=== PATIENT | male | born 1980 | race Caucasian/White ===

== ENCOUNTER 2019-01-21 15:43 | Emergency (ER) | payer MEDICAID ==
[~2019-01-21] VITALS: Ht 182.9 cm; Wt 95.5 kg
[~2019-01-21 15:43] MED LIST: CYCL-1 PO; METH-603 PO
[2019-01-21 15:59] VITALS: BP 181/82
[2019-01-21] MEDS ORDERED: IBUP-1985 PO (16:35)
== END 2019-01-21 16:54 | disposition home or self-care (01) ==
LOC: ER 15:44
DX: S93.492A Sprain of other ligament of left ankle, initial encounter (principal); S90.02XA Contusion of left ankle, initial encounter; G89.29 Other chronic pain; X50.1XXA Overexertion from prolonged static or awkward postures, initial encounter; Y93.01 Activity, walking, marching and hiking; Y92.89 Other specified places as the place of occurrence of the external cause; Y99.9 Unspecified external cause status
CPT/HCPCS: 29540; 73610; 73630; 99283

== ENCOUNTER 2019-08-24 09:33 | Inpatient (IN) | payer MEDICAID ==
[~2019-08-24] VITALS: Ht 188 cm; Wt 105.0 kg
[~2019-08-24 09:33] MED LIST changes: +IBUP-1985 PO
[2019-08-24 10:07] LABS: BASOPHILS % (AUTO) 0.8 % (0-1); EOSINOPHILS % (AUTO) 0.1 % (0-6); HEMATOCRIT 44.6 % (42.0-52.0); HEMOGLOBIN 15.4 g/dl (14.0-17.9); LYMPHOCYTES # (AUTO) 1.6 X10'3 (1.1-4.8); LYMPHOCYTES % (AUTO) 30.3 % (21-51); MEAN CORPUSCULAR HEMOGLOBIN 34.5 PG (27.0-31.0); MEAN CORPUSCULAR HGB CONC 34.5 g/dL (33.0-36.5); MEAN CORPUSCULAR VOLUME 99.9 FL (78-98); MEAN PLATELET VOLUME 7.5 FL (7.4-10.4); MONOCYTES # (AUTO) 0.4 X10'3 (0-0.9); MONOCYTES % (AUTO) 7.7 % (2-12); NEUTROPHILS # (AUTO) 3.3 X10'3 (1.8-7.7); NEUTROPHILS % (AUTO) 61.1 % (42-75); PLATELET COUNT 127 X10'3 (140-440); RED BLOOD COUNT 4.46 X10'6 (4.70-6.10); RED CELL DISTRIBUTION WIDTH 16.3 % (11.5-14.5); WHITE BLOOD COUNT 5.3 X10'3 (4.5-11.0)
[2019-08-24 10:32] LABS: ALANINE AMINOTRANSFERASE 174 U/L (12-78); ALBUMIN 2.6 G/DL (3.4-5.0); ALBUMIN/GLOBULIN RATIO 0.4 (1.1-1.5); ALKALINE PHOSPHATASE 260 IU/L (46-116); ANION GAP 12 (8-16); ASPARTATE AMINO TRANSFERASE 589 U/L (10-37); BLOOD UREA NITROGEN 9 MG/DL (7-18); BUN/CREATININE RATIO 8.6 (5.4-32.0); CALCIUM 8.6 MG/DL (8.5-10.1); CHLORIDE 99 MMOL/L (99-107); CREATININE 1.05 MG/DL (0.60-1.10); GLUCOSE 174 MG/DL (70-104); SODIUM 140 MMOL/L (135-145); TOTAL CARBON DIOXIDE 28.7 MMOL/L (24-32); TOTAL PROTEIN 8.6 G/DL (6.4-8.2); eGFR 79 ML/MIN
[2019-08-24 10:40] LABS: LIPASE 1860 U/L (73-393)
[2019-08-24 10:42] LABS: POTASSIUM 2.7 MMOL/L (3.5-5.1)
[2019-08-24] MEDS ORDERED: normal saline 1000ML IV soln IVB ONE ×2 (10:45→11:30)
--- NOTE | 2019-08-24 10:55 | NUR ---
TESSIE Malhotra made aware patient actively vomiting, diaphoretic, shaking, patient states he feels symptoms are related to ETOH withdrawl.
[2019-08-24] MEDS ORDERED: proCHLORperazine 10 MG/2 ml inj IV ONE (11:00)
[2019-08-24] MEDS ORDERED: LORazepam 2 mg/ml vial IV ONE (11:00)
[2019-08-24] MEDS ORDERED: diphenhydrAMINE 50 mg/ml inj IV ONE (11:00)
[2019-08-24] MEDS ORDERED: potassium chloride 10mEq ER tablet PO ONE (11:10)
[2019-08-24 11:29] LABS: TRIGLYCERIDES 266 MG/DL (20-135)
[2019-08-24] MEDS ORDERED: thiamine 100mg/ml 2ml inj. IV ONE ×2 (11:30→12:10)
[2019-08-24] MEDS ORDERED: folic acid 1mg/0.2ml inj IV ONE (11:30)
[2019-08-24] MEDS ORDERED: morphine 2 MG/ML inj. syringe IV ONE (12:00)
[2019-08-24] MEDS ORDERED: morphine 2 MG/ML inj. syringe IV PRN ×2 (12:10)
[2019-08-24] MEDS ORDERED: dextrose 50%-water 50ml dispensing syringe IV PRN (12:10)
[2019-08-24] MEDS ORDERED: cloNIDine 0.1 MG/24 HOUR patch (7 day patch) TD SCH (12:10)
[2019-08-24] MEDS ORDERED: haloperidol lactate 5mg/ml inj IM PRN (12:10)
[2019-08-24] MEDS ORDERED: HYDROcodone/acetaminophen 5mg/325mg tablet PO PRN (12:10)
[2019-08-24] MEDS ORDERED: acetaminophen 325mg tablet PO PRN ×2 (12:10)
[2019-08-24] MEDS ORDERED: loperamide 2mg capsule PO PRN ×2 (12:10)
[2019-08-24] MEDS ORDERED: magnesium hydroxide 30ml (MOM) UD suspension PO PRN (12:10)
[2019-08-24] MEDS ORDERED: mag hydrox/Alum hydrox/simeth 30ml oral suspension PO PRN ×2 (12:10)
[2019-08-24] MEDS ORDERED: cyclobenzaprine 10mg tablet PO PRN (12:10)
[2019-08-24] MEDS: nitroGLYCERIN 0.4mg SUBLingual tab SL PRN ×2 (12:24→12:31)
[2019-08-24] MEDS ORDERED: NO HOME MEDS (12:39)
--- NOTE | 2019-08-24 13:13 | NUR ---
Tried to call report to PCU. Told that the nurse was finishing up a discharge and that she would call right back.
--- NOTE | 2019-08-24 13:33 | NUR ---
Patient in room ED 13. I have received report from Lisa CALDERON and had the opportunity to ask questions. Awaiting patient arrival to the unit.
--- NOTE | 2019-08-24 14:01 | NUR ---
patient arrived on unit, vss
[2019-08-24] MEDS: methadone 10mg tablet PO SCH ×3 (14:02→20:05)
[2019-08-24] MEDS: dextrose 5%-1/2 normal saline 1,000 ML IV SCH (14:03)
[2019-08-24 14:05] VITALS: BP 155/93
[2019-08-24] MEDS: LORazepam 2 mg/ml vial IV PRN ×4 (14:10→22:22)
[2019-08-24] MEDS: ondansetron/PF 4mg/2ml inj IV PRN ×2 (14:10→22:41)
--- NOTE | 2019-08-24 15:00 | NUR ---
Problems reprioritized. Patient report given, questions answered & plan of care reviewed with Garry BANGURA.
--- NOTE | 2019-08-24 15:00 | NUR ---
Patient in room PCU 3012. I have received report from Lin BANGURA and had the opportunity to ask questions and assume patient care.
--- NOTE | 2019-08-24 15:09 | NUR ---
Paged Dr. Hoyos. Jarrod Carlton. [id number]. Patient has a potassium of 2.7. One time dose of 40 meq was given in the ED. No replacement orders. Please advise. TY. Castañeda [id number]
[2019-08-24] MEDS: HYDROcodone/acetaminophen 10/325mg tab PO PRN (16:10)
[2019-08-24] MEDS ORDERED: pneumococcal 23-VAL P-sac vacc 25 mcg/0.5ml vial IMVAC ONE (16:45)
[2019-08-24] MEDS ORDERED: SILD100T PO (16:48)
[2019-08-24 18:00] VITALS: BP 136/75
--- NOTE | 2019-08-24 18:31 | NUR ---
Problems reprioritized. Patient report given, questions answered & plan of care reviewed with Mohit BANGURA.
--- NOTE | 2019-08-24 18:33 | NUR ---
Patient in room PCU 3012. I have received report from Garry BANGURA and had the opportunity to ask questions and assume patient care.
--- NOTE | 2019-08-24 19:29 | NUR ---
PAGE SENT PAGER ID: [phone] MESSAGE: pt in [id number] Jarrod Carlton 39 male here for crp and ETOH, pt potassium at 0948 this morning was 2.[address] him on K/Mg protocol?-Mohit
[2019-08-24] MEDS ORDERED: potassium CL 10mEq/100ml bag 100 ML IV PRN (19:55)
[2019-08-24] MEDS ORDERED: magnesium 4gm in 100ml NS 100 ML IV PRN (19:55)
[2019-08-24] MEDS ORDERED: magnesium Cl slow-release 64mg tablet PO PRN (19:55)
[2019-08-24] MEDS ORDERED: potassium Cl 20 mEq SR tablet PO PRN (19:55)
[2019-08-24] MEDS: K and/or MAG REPLACEMENT MC SCH ×2 (20:00→20:04)
[2019-08-24] MEDS: potassium Cl 20 mEq SR tablet PO PRN (20:05)
[2019-08-24 20:38] LABS: MAGNESIUM 1.4 MG/DL (1.5-2.4)
[2019-08-24 20:43] LABS: POTASSIUM 2.7 MMOL/L (3.5-5.1)
--- NOTE | 2019-08-24 20:47 | NUR ---
Page Sent PAGER ID: [phone] MESSAGE: pt in [id number] Jarrod Carlton 39 male here for crp and ETOH, pt potassium 2.7 pt on K/Mg protocol and receiving replacement.-Mohit [id number]
[2019-08-24 22:00] VITALS: BP 143/73
--- NOTE | 2019-08-24 22:10 | NUR ---
pt reports feeling anxious, and hallucinations. pt is tremulous, HR elevated, restless, and sweating. pt A&O x3.
--- NOTE | 2019-08-24 23:20 | NUR ---
pt found by staff walking in room bleeding from IV site, pt states he fell and hit the back of his head on the wall, pt states he urinated on floor and slipped in it, as he could not find the restroom. pt a&o x 3, and appropriate, reports pain to the back of his head no injury visualized to the pt, Dr. Dumont notified, advised to monitor pt, no new orders. Addendum: 08/25/19 at 0043 by Bob Caruso RN pt was re-educated about call light, bed alarm on Addendum: 08/25/19 at 0044 by Bob Caruso RN pt moved closer to nurses station.
--- NOTE | 2019-08-24 23:39 | NUR ---
Page Sent PAGER ID: [phone] MESSAGE: pt in [id number] Jarrod Carlton 39 male here for cp and ETOH, pt reports falling and hitting his head.- Mohit [id number]
[2019-08-25] MEDS: dextrose 5%-1/2 normal saline 1,000 ML IV SCH ×2 (00:36→08:08)
[2019-08-25] MEDS: LORazepam 2 mg/ml vial IV PRN ×4 (00:36→07:19)
[2019-08-25] MEDS: potassium Cl 20 mEq SR tablet PO PRN ×2 (01:36→07:18)
[2019-08-25 01:59] VITALS: BP 161/91
--- NOTE | 2019-08-25 04:00 | NUR ---
pt agitated, anxious, tremulous, pt also hallucinating, pt states he wants to leave pt educated and diverted from leaving.
[2019-08-25] MEDS: HYDROcodone/acetaminophen 10/325mg tab PO PRN ×2 (04:08→08:12)
[2019-08-25 06:00] VITALS: BP 170/93
[2019-08-25 06:08] LABS: ALANINE AMINOTRANSFERASE 164 U/L (12-78); ALBUMIN 2.5 G/DL (3.4-5.0); ALBUMIN/GLOBULIN RATIO 0.5 (1.1-1.5); ALKALINE PHOSPHATASE 217 IU/L (46-116); ANION GAP 10 (8-16); ASPARTATE AMINO TRANSFERASE 535 U/L (10-37); BILIRUBIN,TOTAL 2.8 MG/DL (0.1-1.0); BLOOD UREA NITROGEN 9 MG/DL (7-18); BUN/CREATININE RATIO 8.8 (5.4-32.0); CALCIUM 8.2 MG/DL (8.5-10.1); CHLORIDE 100 MMOL/L (99-107); CHOL/HDL RATIO 9.4 (0.00-4.99); CHOLESTEROL 234 MG/DL (0-200); CREATININE 1.02 MG/DL (0.60-1.10); GLUCOSE 117 MG/DL (70-104); HDL CHOLESTEROL 25 MG/DL (35-60); LDL CHOLESTEROL 159 MG/DL (50-100); MAGNESIUM 1.2 MG/DL (1.5-2.4); SODIUM 140 MMOL/L (135-145); TOTAL PROTEIN 7.7 G/DL (6.4-8.2); TRIGLYCERIDES 173 MG/DL (20-135); eGFR 82 ML/MIN
[2019-08-25 06:16] LABS: LIPASE 1663 U/L (73-393)
--- NOTE | 2019-08-25 06:20 | NUR ---
Problems reprioritized. Patient report given, questions answered & plan of care reviewed with Jessi BANGURA.
[2019-08-25 06:23] LABS: POTASSIUM 2.8 MMOL/L (3.5-5.1)
--- NOTE | 2019-08-25 06:35 | NUR ---
Patient in room PCU 3017. I have received report from Mohit BANGURA and had the opportunity to ask questions and assume patient care.
--- NOTE | 2019-08-25 06:36 | NUR ---
Patient in room PCU 3017. I have received report from [facility] and had the opportunity to ask questions and assume patient care.
[2019-08-25 07:04] LABS: BASOPHILS % (AUTO) 0.8 % (0-1); EOSINOPHILS % (AUTO) 0.3 % (0-6); HEMATOCRIT 38.9 % (42.0-52.0); HEMOGLOBIN 13.1 g/dl (14.0-17.9); LYMPHOCYTES # (AUTO) 0.6 X10'3 (1.1-4.8); LYMPHOCYTES % (AUTO) 13.2 % (21-51); MEAN CORPUSCULAR HGB CONC 33.6 g/dL (33.0-36.5); MEAN CORPUSCULAR VOLUME 101.1 FL (78-98); MONOCYTES # (AUTO) 0.4 X10'3 (0-0.9); MONOCYTES % (AUTO) 8.5 % (2-12); NEUTROPHILS # (AUTO) 3.6 X10'3 (1.8-7.7); NEUTROPHILS % (AUTO) 77.2 % (42-75); PLATELET COUNT 74 X10'3 (140-440); RED BLOOD COUNT 3.85 X10'6 (4.70-6.10); WHITE BLOOD COUNT 4.6 X10'3 (4.5-11.0)
[2019-08-25] MEDS: methadone 10mg tablet PO SCH (07:18)
[2019-08-25] MEDS: K and/or MAG REPLACEMENT MC SCH (07:22)
[2019-08-25] MEDS ORDERED: metoprolol tartrate 1mg/ml inj IV PRN (07:35)
[2019-08-25] MEDS ORDERED: regadenoson 0.4mg/5ml syringe IV ONE (07:35)
[2019-08-25] MEDS ORDERED: nitroGLYCERIN 0.4mg SUBLingual tab SL PRN (07:35)
[2019-08-25] MEDS ORDERED: aminophylline 250mg/10ml inj. IV PRN (07:35)
[2019-08-25] MEDS ORDERED: aspirin 81mg tablet.DR PO SCH (08:00)
[2019-08-25 08:41] LABS: PLATELET ESTIMATE DECREASED
--- NOTE | 2019-08-25 08:50 | NUR ---
Spoke to Dr. Hoyos in regards to patient wanting to leave AMA, pt uncooperative and does not want to stay for stress test, Dr. Hoyos ok for patient to leave AMA, AMA paper signed, tele monitor returned and PIV dc'ed and clean dry dressing in place, pt is wheeled down to [facility] w/ hospital staff and student RN to private vehicle, all belongings w/ pt.
[2019-08-25 08:55] VITALS: BP 167/93
[2019-08-25] MEDS ORDERED: pneumococcal 23-VAL P-sac vacc 25 mcg/0.5ml vial IMVAC ONE (10:00)
== END 2019-08-25 09:10 | disposition left against medical advice (07) | DRG 282 ==
LOC: ER 09:33 → ED HOLD 12:08 → EDBEDREQ 13:08 → PCU 3S 14:25
PROVIDERS: ADMIT Internal Medicine; ATTEND Internal Medicine
DX: K85.20 Alcohol induced acute pancreatitis without necrosis or infection (principal); I50.9 Heart failure, unspecified; K70.10 Alcoholic hepatitis without ascites; E87.6 Hypokalemia; F17.210 Nicotine dependence, cigarettes, uncomplicated; K86.0 Alcohol-induced chronic pancreatitis; F10.239 Alcohol dependence with withdrawal, unspecified; Z53.29 Procedure and treatment not carried out because of patient's decision for other reasons; G89.29 Other chronic pain; M54.9 Dorsalgia, unspecified; I25.10 Atherosclerotic heart disease of native coronary artery without angina pectoris; I25.2 Old myocardial infarction; Z82.49 Family history of ischemic heart disease and other diseases of the circulatory system
CPT/HCPCS: 36415; 71045; 76700; 80053; 80061; 82948; 83690; 83735; 83880; 84132; 84478; 84484; 85025; 85610; 87081; 93005; 96361; 96374; 96375; 99285; G0378; J0780; J1200; J1630; J2060; J2270; J2405; J3411; J3490; J7030

== ENCOUNTER 2019-08-25 13:38 | Emergency (ER) | payer MEDICAID ==
[~2019-08-25 13:38] MED LIST changes: -CYCL-1 PO; -IBUP-1985 PO; -METH-603 PO; +NO HOME MEDS; +SILD100T PO
--- NOTE | 2019-08-25 14:20 | NUR ---
EMS arrived with patient, we were unable at the time to find patient a room due to unavailability of ER beds. I was notified by registration that there was a patient in the lobby with an IV wanting to leave. Patient then pulled out his own IV and was bleeding on the ER lobby floor. Patients IV site was quickly dressed with gauze and tape. Patient refused to wait and be seen by provider. Patient left lobby at this time. Patient was alert and oriented x4 upon walking out of ED. I spoke with EMS who stated that patient was just going to the bathroom and was supposed to come back to EMS gurney. I discussed with them what had happened and that patient left without being triaged. I obtained paperwork from unit 116 and unit left ER.
== END 2019-08-25 16:16 | disposition left against medical advice (07) ==
LOC: ER 13:39
DX: R69 Illness, unspecified (principal); Z53.21 Procedure and treatment not carried out due to patient leaving prior to being seen by health care provider
CPT/HCPCS: 99283